=== PATIENT | female | born 1965 | race Caucasian/White ===

== ENCOUNTER → 2016-10-27 | Outpatient (REF) ==
[~2016-10-27] MED LIST: ENJUVIA PO; ENJUVIA0.625 MG PO; FENTANYL 25 MCG TP; FENTANYL 50MCG TOP; IMITREX100 MG PO; LEXAPRO20 MG PO; LORTAB 7.5/5001 TAB PO; NEXIUM40 MG PO; OXYCODONE5 MG PO; PHENERGAN 25 TA25 MG PO; PHENERGAN25 MG RC; SYNTHROID0.125 MG/T PO; WELLBUTRIN SR150 M1 PO
== END ==
LOC: ZLAB.WCH 10:58
DX: Z01.89 Encounter for other specified special examinations (principal)

== ENCOUNTER → 2017-06-30 | Outpatient (REF) ==
[2017-06-30 21:43] LABS: THYROID STIMULATING HORMONE 7.05 uIU/mL (0.465-4.680)
== END ==
LOC: ZLAB.WCH 20:24
PROVIDERS: Family Medicine
DX: Z01.89 Encounter for other specified special examinations (principal)

== ENCOUNTER → 2017-10-18 | Outpatient (REF) ==
[2017-10-18 20:03] LABS: THYROID STIMULATING HORMONE < 0.015 uIU/mL (0.465-4.680)
== END ==
LOC: ZLAB.WCH 18:46
PROVIDERS: Family Medicine
DX: Z01.89 Encounter for other specified special examinations (principal)

== ENCOUNTER → 2017-11-15 | Outpatient (CLI) | payer MEDICARE, BC | LOC: MC.RAD 09:45 | DX: R92.0 Mammographic microcalcification found on diagnostic imaging of breast (principal); N63.10 Unspecified lump in the right breast, unspecified quadrant ==